=== PATIENT | male | born 1965 | race African-American/Black ===

== ENCOUNTER 2025-08-29 20:48 | Emergency (ER) | payer OTHER ==
[2025-08-29] MEDS ORDERED: Lidocaine 1% PF 5 ML VIAL ONE (21:11)
[2025-08-29] MEDS ORDERED: Bacitracin 1 PK ONE (22:25)
[2025-08-29] MEDS ORDERED: Boostrix 0.5 ML (Tdap) VIAL (>/=7 yrs of age) ONE (22:35)
== END 2025-08-29 23:07 | disposition home or self-care (01) ==
LOC: MADERS 20:48
DX: S61.012A Laceration without foreign body of left thumb without damage to nail, initial encounter (principal); Z23 Encounter for immunization; E11.9 Type 2 diabetes mellitus without complications; I10 Essential (primary) hypertension; Z79.4 Long term (current) use of insulin; Z79.899 Other long term (current) drug therapy; W23.0XXA Caught, crushed, jammed, or pinched between moving objects, initial encounter
CPT/HCPCS: 12002; 90471; 90715